=== PATIENT | female | born 1995 | race Caucasian/White ===

== ENCOUNTER → 2018-05-17 08:32 | Outpatient (CLI) | payer OTHER, SELFPAY ==
--- NOTE | 2018-05-17 | DI.RAD.S_ITS ---
PROCEDURE: FL SHOULDER INJECTION MR/CT LT INDICATIONS: LEFT SHOULDER PAIN TECHNIQUE: The indications, alternatives, benefits, risks, and complications of the procedure were explained to the patient. Written informed consent was obtained and placed in the chart. The shoulder was examined fluoroscopically and a site for needle placement chosen for entry into the glenohumeral joint from an anterior approach. The skin was prepped and draped in a sterile fashion, and 1% lidocaine infiltrated from skin down to joint capsule. A spinal needle was inserted into the glenohumeral joint, and a small amount of iodinated contrast media injected to confirm intra-articular placement of the needle tip. This was followed by approximately 12 mL dilute solution of a gadolinium containing MR contrast agent. The needle was removed and a dressing was applied. The patient was given postprocedural instructions and sent to the MR suite for MR imaging. FINDINGS: A single fluoroscopic spot image demonstrates intra-articular location of injected iodinated contrast. IMPRESSION: Successful fluoroscopically guided administration of dilute Gadolinium solution into the shoulder joint for MR arthrogram. Dictated by: Eyad Brown M.D. on 05/17/2018 at 12:53 Approved by: Eyad Brown M.D. on 05/17/2018 at 12:53
--- NOTE | 2018-05-17 | DI.MRI.S_ITS ---
PROCEDURE: MR SHOULDER LT W CON INDICATIONS: shoulder pain TECHNIQUE: After the administration of 12 mL of dilute intra-articular Gadolinium contrast, oblique coronal T1 and T2 spin echo with fat saturation, oblique sagittal T1 spin echo with and without fat saturation, oblique sagittal T2 fast spin echo with fat saturation, axial T1 spin echo with fat saturation through the shoulder. COMPARISON: None. FINDINGS: Image quality: Excellent. Rotator cuff: The supraspinatus, infraspinatus, and subscapularis tendons appear intact throughout. No rotator cuff muscle atrophy on sagittal images. Bones and bursae: No bone marrow contusions or fractures. No acromioclavicular joint degeneration. The acromion demonstrates conventional anatomy, without an os acromiale. Capsule and soft tissues: The labrum and glenohumeral ligaments appear intact. The long head of the biceps tendon demonstrates normal location and morphology. The rotator interval appears normal, without fibrosis. The coracohumeral ligament is of normal thickness. No intra-articular bodies. IMPRESSION: Unremarkable MR arthrogram of left shoulder. No evidence of focal labral tear. No gross rotator cuff tendon pathology. Dictated by: Cruz Mcclelland M.D. on 05/17/2018 at 12:12 Approved by: Cruz Mcclelland M.D. on 05/17/2018 at 12:20
== END ==
PROVIDERS: Visit Provider Orthopaedic Surgery
DX: M25.512 Pain in left shoulder (principal)
CPT/HCPCS: 23350; 73222; 77002

== ENCOUNTER → 2022-09-20 11:55 | Outpatient (CLI) | payer OTHER, MEDICAID, SELFPAY ==
--- NOTE | 2022-09-20 | DI.ECHO.S_ITS ---
[place]---------+ [facility] +---------+ : : [address] : : : : [id number] : : : : Phone: [phone]+ Echocardiogram Report + + :Name: KRYSTAL PERALTA Study Date: 09/20/2022 Height: 68 in : :[facility] ReadingLocation: Weight: 150 lb : : Gender: Female BSA: 1.8 m2 : :: 1995 Age: 27 yrs BP: 115/80 mmHg: :Reason For Study: TACHYCARDIA : :Ordering Physician: Fide WOODWARDformed By: Carrie Tao : :Referring: DIONE WOODWARD : + + Interpretation Summary Normal sinus rhythm. Normal LV size, wall thickness, wall motion and LV systolic function. EF is 55-60%. Normal chamber sizes. There is mild anterior leaflet prolapse with moderate associated posterolaterally directed mitral regurgitation. No significant valvular abnormalities otherwise. No prior study available for comparison. Procedure: A two-dimensional transthoracic echocardiogram with color flow and Doppler was performed. The study quality was technically adequate. There is no prior echocardiogram noted for this patient. The patient was in sinus rhythm with heart rates between 65-81 bpm during the exam. Left Ventricle: The left ventricle is normal in size and wall thickness. The ejection fraction is estimated to be 55-60%. Right Ventricle: The right ventricle is normal in size and function. Atria: The left atrium is borderline dilated. Right atrial size is normal. There is no Doppler evidence for an interatrial shunt. Mitral Valve: The mitral valve leaflets are thin and pliable. There is moderate mitral regurgitation. The mitral regurgitant jet is eccentrically directed. Regurgitation difficult to estimate due to coanda effect which does not quite wrap around the atrium but stops at the superior margin of left atrium. The jet covers <50% of left atrium and it is very eccentric, so impossible to quantify via PISA method. There is no evidence of pulmonary vein systolic flow reversal. Aortic Valve: The aortic valve is trileaflet. The aortic valve opens well. There is no aortic valve stenosis. No aortic regurgitation is present. Tricuspid Valve: The tricuspid valve is normal in structure and function. There is mild tricuspid regurgitation. The right ventricular systolic pressure is estimated to be at least 16 mmHg based on an estimated right atrial pressure of 3 mm Hg. Pulmonic Valve: The pulmonic valve leaflets are thin and pliable; valve motion is normal. There is trace pulmonic regurgitation. Great Vessels: The aortic root is normal size. The dimensions of the ascending aorta are normal. The IVC is of normal diameter and collapses greater than 50% with a sniff. This suggests a low right atrial pressure of 3 mm Hg. Pericardium/ Pleura There is no pericardial effusion. There is no pleural effusion. MMode/2D Measurements & Calculations LVIDd: 5.4 cm LVOT diam: 2.0 cm LVIDs: 3.9 cm Ao root diam: 2.7 cm FS: 28.2 % asc Aorta Diam: 2.4 cm IVSd: 0.91 cm Ao Arch Diam (Prox Trans): 2.2 cm LVPWd: 0.96 cm LV franks. diameter/BSA (cm/m^2): 3.0 LV sys. diameter/BSA (cm/m^2): 2.1 LA A2 area: 19.0 cm2 RA long axis: 5.0 cm LA A4 area: 21.3 cm2 RA area: 17.1 cm2 LA length (vol): 5.6 cm RA vol: 50.0 ml LA vol: 61.2 ml RA : 27.7 ml/m2 LA vol index: 33.9 ml/m2 IVC diam: 1.5 cm RVD1 (basal): 3.1 cm RVD2 (mid): 3.0 cm TAPSE: 1.7 cm Doppler Measurements & Calculations Ao V2 max: 126.5 cm/sec LVOT Max Mack: 89.0 cm/sec Ao V2 mean: 87.8 cm/sec LV V1 max P.2 mmHg Ao max P.4 mmHg LV V1 VTI: 16.8 cm Ao mean P.5 mmHg SLAVA(I,D): 2.3 cm2 Ao V2 VTI: 23.1 cm SLAVA(V,D): 2.2 cm2 sev ratio: 0.73 SLAVA indexed to BSA (cm^2/m^2): 1.3 MV E max mack: 102.6 cm/sec TR max mack: 182.5 cm/sec MV A max mack: 92.4 cm/sec TR max P.3 mmHg MV E/A: 1.1 PA V2 max: 88.2 cm/sec Med Peak E' Mack: 9.2 cm/sec PA V2 mean: 62.5 cm/sec E/E' med: 11.2 PA mean P.8 mmHg Lat Peak E' Mack: 12.2 cm/sec PA pr(Accel): 41.3 mmHg E/E' lat: 8.4 E/e' average: 9.8 MV dec time: 0.22 sec MVA(VTI): 1.7 cm2 MV V2 mean: 76.2 cm/sec SV(LVOT): 53.5 ml MV mean P.6 mmHg MV V2 VTI: 31.9 cm Electronically signed by: Alicja Feng M.D. on Reading Physician:09/21/2022 01:24 AM
== END ==
PROVIDERS: PCP Physician Assistant Medical; Referring Provider Internal Medicine Cardiovascular Disease; Visit Provider Internal Medicine Cardiovascular Disease
DX: R00.0 Tachycardia, unspecified (principal); I08.1 Rheumatic disorders of both mitral and tricuspid valves
CPT/HCPCS: 93306